=== PATIENT | female | born 1985 | race Caucasian/White ===

== ENCOUNTER 2017-09-24 16:33 | Emergency (ER) | payer SELFPAY ==
[~2017-09-24] VITALS: Ht 162.6 cm; Wt 76.0 kg
[2017-09-24 16:45] VITALS: BP 122/77
[2017-09-24] MEDS ORDERED: MECLIZINE 25MG TABLET PO ONE (18:00)
== END 2017-09-24 18:14 | disposition home or self-care (01) ==
LOC: ER 16:33
DX: R42 Dizziness and giddiness (principal); H92.03 Otalgia, bilateral; H91.93 Unspecified hearing loss, bilateral; F90.9 Attention-deficit hyperactivity disorder, unspecified type; M06.9 Rheumatoid arthritis, unspecified; F31.9 Bipolar disorder, unspecified
CPT/HCPCS: 81025; 99283; J8597